=== PATIENT | male | born 1960 | race Caucasian/White ===

== ENCOUNTER 2017-06-08 09:39 | Outpatient (CLI) | payer OTHER | END 2017-06-08 09:40 | disposition home or self-care (01) | LOC: NAVSJIPCSP 09:39 | PROVIDERS: ATTEND Internal Medicine | DX: E78.5 Hyperlipidemia, unspecified (principal) | CPT/HCPCS: 36415; 80061 ==

== ENCOUNTER 2017-10-24 14:26 | Outpatient (CLI) | payer OTHER ==
--- NOTE | 2017-10-24 15:53 | RAD ---
RIGHT SHOULDER THREE VIEW: HISTORY: Pain for about one month. No injury. COMPARISON: None. FINDINGS: There are moderate degenerative changes of the acromioclavicular joint with calcifications of the sup erior capsule. There are enthesopathic changes of the greater tuberosity. No displaced fracture is appreciated. IMPRESSION: Degenerative changes. No displaced fracture. POS: OFF
== END 2017-10-24 14:27 | disposition home or self-care (01) ==
LOC: NAV RAD 14:26
PROVIDERS: ATTEND Internal Medicine
DX: F32.4 Major depressive disorder, single episode, in partial remission (principal); M19.011 Primary osteoarthritis, right shoulder

== ENCOUNTER 2024-09-11 18:09 | Outpatient (CLI) | payer BC | END 2024-09-11 18:10 | disposition home or self-care (01) | LOC: NAV RAD 18:09 | PROVIDERS: ATTEND Family Medicine | DX: R05.1 Acute cough (principal) | CPT/HCPCS: 71046 ==